=== PATIENT | female | born 1985 | race African-American/Black ===

== ENCOUNTER 2018-10-09 19:18 | Emergency (ER) | payer SELFPAY ==
[~2018-10-09] VITALS: Ht 182.9 cm; Wt 86.2 kg
[2018-10-09 19:33] VITALS: BP 135/74
[2018-10-09] MEDS ORDERED: HYDROCODON-ACE1 EA15 ORAL (19:36)
[2018-10-09] MEDS ORDERED: AMOXICILLIN500 MG ORAL (19:36)
--- NOTE | 2018-10-09 19:36 | Emergency Room Report ---
History of Present Illness General Chief Complaint: Toothache Source: Patient Present Illness HPI This is a 33-year-old female with no past medical history. She presents with chief complaint of dental pain. This is a chronic problem but worse in the last couple days. Localized in the right upper jaw. No fever chills but no swelling. Denies any trauma or fever. Denies any nausea vomiting. Pain is 10 out of 10. Worse with eating and drinking. Better with rest. She recently moved back to [place] so she does not have a dentist. Allergies: Coded Allergies: IBUPROFEN (Verified Adverse Reaction, Unknown, 10/09/18) Gastric ulcers Patient History Past Medical History: none, see triage record, old chart reviewed Past Surgical History: none Social History: Denies: smoking Last Menstrual Period: 10/04/18 Now: No Immunizations: other Reviewed Nursing Documentation: PMH: Agreed; PSxH: Agreed Nursing Documentation-PMH Past Medical History: No History, Except For Hx Gastrointestinal Problems: Yes - Stomach ulcer Review of Systems Eye: Denies: eye pain, blurred vision ENT: Denies: ear pain, nose congestion, throat swelling Respiratory: Denies: cough, shortness of breath Cardiovascular: Denies: chest pain, palpitations Gastrointestinal: Denies: abdominal pain, diarrhea, nausea, vomiting Musculoskeletal: Denies: back pain, joint pain Skin: Denies: rash Neurological: Denies: headache, numbness Endocrine: Denies: increased thirst, increased urine Hematologic/Lymphatic: Denies: easy bruising All Other Systems: negative except mentioned in HPI Physical Exam Vital Signs Date Time Temp Pulse Resp B/P (MAP) Pulse Ox O2 Delivery O2 Flow Rate FiO2 10/09/18 19:24 98.2 98 19 139/77 98 Room Air vitals normal Sp02 EP Interpretation: reviewed, normal General Appearance: well appearing, no apparent distress, alert Head: normocephalic, atraumatic Eyes: bilateral eye PERRL, bilateral eye EOMI ENT: hearing grossly normal, normal pharynx, other - Right upper first, second , third molars are decayed. No abscess. Tender to percussion. Neck: full range of motion, supple, no meningismus Respiratory: chest non-tender, lungs clear, normal breath sounds Cardiovascular #1: regular rate, rhythm, no murmur Gastrointestinal: normal bowel sounds, non tender, no mass, no organomegaly, no bruit, non-distended Musculoskeletal: back normal, gait/station normal, normal range of motion Psychiatric: mood/affect normal Skin: warm/dry Medical Decision Making Diagnostic Impression: Primary Impression: Dental caries Additional Impression: Toothache ER Course Patient with dental pain secondary to dental caries. No evidence of abscess second twice a day. She will need to see a dentist. No trismus. We'll discharge home. Last Vital Signs Date Time Temp Pulse Resp B/P (MAP) Pulse Ox O2 Delivery O2 Flow Rate FiO2 10/09/18 19:24 98.2 98 19 139/77 98 Room Air Status: improved Disposition: HOME, SELF-CARE Condition: Stable Scripts Hydrocodone/Acetaminophen 5-325* (HYDROCODONE/ACETAMINOPHEN 5-325*) 1 Each Tablet 1 TAB ORAL Q6H PRN for For Pain, #15 TAB 0 Refills Prov: Michael Farnsworth MD 10/09/18 Amoxicillin* (AMOXIL*) 500 Mg Capsule 500 MG ORAL THREE TIMES A DAY, #21 CAP Prov: Michael Farnsworth MD 10/09/18 Additional Instructions: Follow-up with dentist OB[facility]. Return if symptom worsen. Michael Farnsworth MD Oct 09, 2018 19:36
[2018-10-09] MEDS ORDERED: Norco 5mg/325mg tab ORAL ONE (19:45)
[2018-10-09 19:56] VITALS: BP 132/72
[2018-10-09 19:57] VITALS: BP 132/70
== END 2018-10-09 20:00 | disposition home or self-care (01) ==
LOC: EMR 19:52
DX: K02.9 Dental caries, unspecified (principal); Z88.6 Allergy status to analgesic agent
CPT/HCPCS: 99283